=== PATIENT | male | born 1985 | race Caucasian/White ===

== ENCOUNTER 2021-03-07 16:46 | Emergency (ER) | payer MEDICAID, SELFPAY ==
[2020-05-26 08:22] VITALS: BMI 19.5
[2021-03-07 16:47] VITALS: BP 119/85; PULSE 103; RESP 14; TEMP 36.8; O2SAT 97; BMI 21.4
--- NOTE | 2021-03-07 18:33 | EDS_ITS ---
HPI History of Present Illness HPI Narrative: Patient presents with laceration to his right thumb that occurred today. Patient states he got hit by a fan blade on his right thumb. Patient states bleeding has been persistent. Patient states the bleeding is improved with applying pressure to the wound. The patient describes the pain as burning and throbbing. Patient states his last tetanus was between 5 and 10 years ago. Patient denies any paresthesias or weakness. Patient denies any other injuries. Chief Complaint: Laceration Informant: patient Occured/Mechanism Mechanism/Context: Yes direct blow Onset/Context/Timing Onset: Today Context: Sudden Onset Timing: Continuous Quality of Pain: Burning and Throbbing Worsened by: Movement Relieved by: Pressure Associated Symptoms Associated Symptoms: Negative for Parasthesia and Weakness Narrative Tetanus Immunization: 5-10 years [facility] Medical History Abnormal bruising ADHD Chondromalacia of patella Difficulty balancing when standing GERD (gastroesophageal reflux disease) History of non-neoplastic nevus Irritable bowel syndrome (IBS) Knee pain Migraine headache with aura Migraines Occipital neuralgia of right side Seasonal allergies Home Medications [id number]-sbuvtjpmfiuko-szrknudl 250 mg-250 mg-65 mg tablet 1 tab PO ONCE PRN 02/26/18 [History Last Taken Unknown] dextroamphetamine-amphetamine ER 20 mg 24hr capsule,extend release 20 mg PO cap 05/26/20 [History Last Taken Unknown] gabapentin 300 mg capsule cap PO 05/26/20 [History Last Taken Unknown] methylprednisolone 4 mg tablets in a dose pack See Rx Instructions PO PER PKG DIR #21 tab 05/26/20 [Rx Last Taken Unknown] Allergy/AdvReac Type Severity Reaction Status Date / Time No Known Allergies Allergy Verified 03/07/21 16:47 Family History Father Bleeding disorder Colitis Hypertension Surgical History Hx of nevus excision Hx of right inguinal hernia repair Social History Smoking Status: Current every day smoker tobacco type: cigarettes second hand exposure: Yes alcohol intake: never substance use type: does not use caffeine: Yes what type of physical activity do you participate in: none frequency: does not exercise seatbelt use: always ROS ROS ED Constitutional Constitutional ED: Denies chills or fever(s) Eyes Eyes: Denies blurry vision or change in vision ENT ENT ED: Denies rhinorrhea or sore throat Cardiovascular Cardiovascular: Denies chest pain or palpitations Respiratory/Chest Respiratory/Chest: Denies cough or dyspnea Gastrointestinal Gastrointestinal: Denies nausea or vomiting Genitourinary Genitourinary ED: Denies dysuria or hematuria Musculoskeletal Musculoskeletal: Denies back pain or neck pain Integumentary Denies abscess or rash Neurologic Neurologic: Denies headache(s) or weakness Allergic/Immunologic Allergic/Immunologic ED: Denies mouth swelling or urticaria EXAM Physical Exam Const Vital Signs: 03/07/21 16:47 Temperature 98.3 F Temperature Source Temporal Pulse Rate 103 H Respiratory Rate 14 Blood Pressure 119/85 H Blood Pressure Mean 96 Pulse Ox 97 Oxygen Delivery Method Room Air Positive well nourished and well developed General Appearance ED: well developed HEENT Reports moist mucous membranes normocephalic Neck full ROM and supple Extremity Extremity Narrative: There is tenderness of the distal phalanx of the right thumb. There is a 2 cm full-thickness linear laceration of the dorsal aspect of the right thumb. There is mild gapping of the wound margins. There is some mild bleeding noted. There is no bony crepitance or step-off. There is no obvious deformity. Strength is 5/5 in flexion extension of the IP and MP joints of the right thumb. Capillary refill was less than 2 seconds in all digits. Sensation was intact to light touch in all digits. Neuro oriented x3, CN's II-XII intact bilaterally, moves all extremities, no focal motor deficits and no sensory deficits noted Sensorium / Orientation: alert Psych mental status grossly normal MDM MDM MDM Narrative Medical decision making narrative: X-rays of the right thumb were obtained. There are 3 views. On my interpretation, there is no acute fracture. There is no dislocation. There is no soft tissue swelling. Radiologist also interpreted the x-rays and agrees. The wound was cleaned and irrigated with copious amounts of normal saline. The wound was anesthetized with 1% plain lidocaine via digital block. The wound was closed with 4 simple interrupted #4-0 nylon sutures under sterile technique. Patient tolerated the procedure well. Bacitracin dressing was applied. Patient was instructed to keep the wound clean and dry. Patient was instructed to follow-up with his primary care physician in 7 days for wound recheck and suture removal. Patient understood and was agreeable with the plan. All questions were answered. Procedures Lacerations Right thumb: Length: 2 cm Depth: Sub Q Shape: Linear Prep: Sterile Conditions and Chlorhexadine Laceration repair: Digital block and Lidocaine Irrigated (ml): 100 Number of Sutures/Ladysmith: 4 Suture Information: Ethilon, Simple and 4-0 Discharge Plan Triage Chief Complaint: Laceration ED Provider: Charles Davila Dx/Rx/DC Orders Clinical Impression: Laceration of right thumb Instructions: ED Laceration, Hand: All Closures Prescriptions: No Action [id number]-nwzkkuugzhcgf-bgkqeqim [Excedrin Extra Strength] 250-250-65 mg tablet 1 tab PO ONCE PRNRF: 0 gabapentin 300 mg capsule PO RF: 0 dextroamphetamine-amphetamine 20 mg capsule,extended release 24hr 20 mg PO RF: 0 methylprednisolone [Medrol (Gold)] 4 mg tablets,dose pack See Rx Instructions PO PER PKG DIR Qty: 21 RF: 0 Primary Care Provider: Care Physician,No Primary Referrals: Sukhi Obregon MD [NON-STAFF] - 7 Days for suture removal Care Physician,No Primary [Primary Care Provider] - 7 Days for suture removal Disposition Disposition: Home, Self Care
--- NOTE | 2021-03-07 18:45 | RAD_ITS ---
STUDY: X-RAY - RIGHT HAND, ATTENTION FIRST FINGER REASON FOR EXAM: Male, 35 years old. LACERATION TO POSTERIOR THUMB FROM FAN BLADE TECHNIQUE: 3 view(s) of the finger were obtained. COMPARISON: Right hand x-ray dated March 18, 2012 FINDINGS: Normal metacarpal head. Normal metacarpophalangeal joint. Normal proximal phalanx. Normal middle phalanx. Normal distal phalanx. Normal proximal interphalangeal joint. Normal distal interphalangeal joint. There is no demonstrated fracture. RAD/Finger(s) Min 2 Views IMPRESSION: Normal x-ray examination of the finger. Electronically Signed: Castillo Oneal MD at 19:20 EDT , Service support ,
[2021-03-07] MEDS: Lidocaine 1% (20 ml mdv) 20 ML Vial INFILT (18:50)
[2021-03-07] MEDS: Diphth,Pertuss(Acell),Tet Vac 0.5 ML Vial IM (18:50)
[2021-03-07 21:27] VITALS: BP 117/89; PULSE 82; RESP 15; O2SAT 99
== END 2021-03-07 21:28 | disposition home or self-care (01) ==
PROVIDERS: Emergency Provider Emergency Medicine
DX: S61.011A Laceration without foreign body of right thumb without damage to nail, initial encounter (principal); F17.210 Nicotine dependence, cigarettes, uncomplicated; W26.8XXA Contact with other sharp object(s), not elsewhere classified, initial encounter; Y93.89 Activity, other specified; Y92.89 Other specified places as the place of occurrence of the external cause; Y99.8 Other external cause status
CPT/HCPCS: 12001; 73140; 90471; 90715; 99283

== ENCOUNTER 2022-04-10 15:33 | Emergency (ER) | payer OTHER, MEDICAID, SELFPAY ==
[2022-04-10 15:33] VITALS: BP 130/90; PULSE 95; RESP 17; TEMP 36.2; O2SAT 98; BMI 20.7
[2022-04-10 16:10] LABS: Color, Urine Yellow (Yellow); Glucose, Dipstick Normal (Normal); Ketone-Dipstick Negative (Negative); Leukocyte Esterase-Dipstick 25 /ul (Negative); Nitrite-Dipstick Negative (Negative); Occult Blood-Urine 250 /ul (Negative); Protein-Dipstick 15 mg/dl (Negative); Specific Gravity, Urine 1.015 (1.002-1.030); Urine Bilirubin Dipstick Negative (Negative); Urine Clarity Clear (Clear); Urine Urobilinogen Normal (Normal)
[2022-04-10 16:24] LABS: Red Blood Cells-Urine 50-100 SEEN /hpf (0-5); Squamous Epithelial Cells - UA 0-5 SEEN /hpf (0-5); White Blood Cells 0-5 SEEN /hpf (0-5)
[2022-04-10 16:25] LABS: Bacteria 1+ /hpf (None Seen); Mucous, Urine 1+ /hpf (<or=2+)
[2022-04-10 16:26] LABS: Hyaline Cast 5-10 SEEN /lpf (0-5)
[2022-04-10 16:29] LABS: Absolute Lymphocyte Count 1.46 X10^3/uL (0.83-4.51); Absolute Neutrophil Count 7.9 X10^3/uL (2.0-7.7); Basophil# 0.03 X10^3/uL; Basophil% 0.3 % (0-1); Eosinophil# 0.02 X10^3/uL; Eosinophils% 0.2 % (0-5); Hematocrit 46.2 % (40-54); Hemoglobin 15.8 g/dL (13.0-16.5); Lymphocyte # 1.46 X10^3/ul (0.83-4.51); Lymphocyte % 14.2 % (19-41); Mean Corp Hgb Conc 34.2 g/dL (32-36); Mean Corpuscular Hgb 30.6 pg (27.0-32.0); Mean Corpuscular Volume 89.4 fL (80-94); Mean Platelet Vol. 10.1 fl (6.2-12.0); Monocyte# 0.81 X10^3/uL; Monocyte% 7.9 % (0-10); NRBC Flagged by Analyzer 0 % (0-5); Neutrophil # 7.93 X10^3/uL (2.7-7.7); Platelet Count 204 K/mm3 (150-450); RBC Distribution Width CV 11.9 % (11.6-14.6); Red Blood Count 5.17 M/mm3 (4.6-6.2); White Blood Count 10.3 K/mm3 (4.4-11.0)
--- NOTE | 2022-04-10 16:29 | EX.ED.DYSGE1 ---
HPI History of Present Illness Chief Complaint: Flank Pain Detail of Chief Complaint: Left flank pain radiating anteriorly. See HPI narrative Informant: patient and spouse/S.O. Onset/Context/Timing Onset: Yesterday Context: Sudden Onset Timing: Continuous and Waxes and wanes Quality: Pain Location: Presently left flank, last evening scrotum as well Current Severity: Mild Maximum Severity: Severe Worsened by: Nothing specific Relieved by: Nothing Associated Symptoms Associated Symptoms: Nausea last evening and pain midstream Narrative Narrative: Patient is a 36-year-old male who presents with left flank pain that radiated anteriorly yesterday evening. He also complained of nausea with pain in his scrotum. No swelling of the scrotum or testicular pain presently. He denies dysuria, frequency, urgency or hematuria. However, he made comment when he had to stop midstream he had discomfort. He has not noted change in the color of his urine. There is no history of renal ureterolithiasis. He does have a remote history of right inguinal hernia, open repair by Dr. Jasbir Asencio. There is no history of trauma. Movement does not exacerbate his pain. Nothing has alleviated his pain. He denies rash. Prior similar symptoms: No Recent Illness/[facility]: [facility] Medical History Abnormal bruising ADHD Chondromalacia of patella Difficulty balancing when standing GERD (gastroesophageal reflux disease) History of non-neoplastic nevus Irritable bowel syndrome (IBS) Knee pain Migraine headache with aura Migraines Occipital neuralgia of right side Seasonal allergies Home Medications fctwspz-jwvlpehvhrhsu-zfxtadgd 250 mg-250 mg-65 mg tablet (Excedrin Extra Strength) 1 tab PO ONCE PRN migraines 02/26/18 [History Last Taken Unknown] dextroamphetamine-amphetamine ER 20 mg 24hr capsule,extend release 20 mg PO DAILY 05/26/20 [History Last Taken Unknown] gabapentin 300 mg capsule 1 cap PO TID PRN PRN nerve 05/26/20 [History Last Taken Unknown] oxycodone-acetaminophen 5 mg-325 mg tablet 1 tab PO Q6H PRN PRN pain 5 days #20 TABLETS 04/10/22 [Rx Last Taken Unknown] sulfamethoxazole 800 mg-trimethoprim 160 mg tablet 1 tab PO BID #14 TABLETS 04/10/22 [Rx Last Taken Unknown] Allergy/AdvReac Type Severity Reaction Status Date / Time No Known Allergies Allergy Verified 04/10/22 15:35 Family History Father Bleeding disorder Colitis Hypertension Surgical History Hx of nevus excision Hx of right inguinal hernia repair Social History (Updated 04/10/22 @ 16:[address] David Bello MD) household members: significant other Smoking Status: Current every day smoker tobacco type: cigarettes second hand exposure: Yes alcohol intake: never substance use type: does not use caffeine: Yes what type of physical activity do you participate in: none frequency: does not exercise seatbelt use: always ROS ROS ED Constitutional Constitutional ED: Denies chills, fever(s), subjective, sweats or weight loss Eyes Eyes: Denies blurry vision, change in vision or diplopia ENT ENT ED: Denies ear pain, rhinorrhea or sore throat Cardiovascular Cardiovascular: Denies chest pain, palpitations or racing heartbeat Respiratory/Chest Respiratory/Chest: Denies cough, dyspnea or dyspnea on exertion Gastrointestinal Gastrointestinal: Reports abdominal pain and nausea; Denies constipation, diarrhea, melena or vomiting Genitourinary Genitourinary ED: Denies dysuria, hematuria or urinary frequency Musculoskeletal Musculoskeletal: Reports back pain; Denies arthralgias, myalgias or neck pain Integumentary Denies abscess, Abrasions or rash Neurologic Neurologic: Denies headache(s), paresthesias or weakness Hematologic/Lymphatic Hematologic/Lymphatic: Reports systems reviewed and no addt'l complaints, except as documented EXAM Physical Exam Const Vital Signs: 04/10/22 15:33 Temperature 97.1 F L Temperature Source Temporal Pulse Rate 95 Respiratory Rate 17 Blood Pressure 130/90 H Blood Pressure Mean 103 Pulse Ox 98 Oxygen Delivery Method Room Air Positive well nourished and well developed; Negative for unkempt General Appearance ED: well developed and NAD; Negative for unkempt, cyanotic, diaphoretic or pallor HEENT Reports moist mucous membranes HEENT Narrative: Head is atraumatic normocephalic. Ears normal. Nares patent. Teeth normal. Eyes PERRL and EOMs intact bilaterally General Eye ED: Negative for pale conjunctiva or scleral icterus Neck no lymphadenopathy, supple and no JVD Resp normal respiratory effort and clear to auscultation bilaterally Cardio regular rate, regular rhythm, S1 normal heart sound, S2 normal heart sound and no murmurs GI normal to inspection, nondistended, normoactive bowel sounds and no masses; Negative for non-tender, non-distended or hepatosplenomegaly GI Narrative: Abdomen is tympanitic. It is slightly distended. There is tenderness throughout. There is no guarding or rebound tenderness. There is no hepatosplenomegaly. There is no inguinal lymphadenopathy. There is no inguinal mass noted. Surgical scar noted on the right. Back/Spine General Back: CVA tenderness left Cervical Spine: Negative for cervical spine tenderness Thoracic Spine / Upper Back: Negative for thoracic spinal tenderness Lumbar Spine / Lower Back: Negative for lumbar spinal tenderness Extremity normal to inspection General Extremety ED: Negative for edema, tenderness or other findings General Extremity: Negative for edema or other findings Neuro oriented x3, CN's II-XII intact bilaterally and no sensory deficits noted Psych Appearance: Negative for unkempt Skin no rashes or lesions noted, no wounds and skin turgor normal General Skin Exam: elasticity normal; Negative for jaundice or pallor MDM MDM MDM Narrative Medical decision making narrative: With urinary symptoms, left flank pain need to rule out UTI versus obstructing stone. We will need to assess renal function, CBC and white count. CBC is unremarkable. Basic metabolic panel is remarkable for a creatinine of 1.31 with a GFR of 65. Urine is remarkable for 1+ bacteria with no pyuria. There is gross hematuria. CT of the abdomen pelvis with IV contrast reveals right renal calculi and an obstructing proximal left ureteral calculi that is 3.2 mm in size. Patient's pain has essentially improved. Since he has an elevated creatinine we will treat his pain with opiate analgesia and not NSAIDs. He also received dose of antibiotics and was referred to Dr. Bansal. Lab Data Attestation: I reviewed the patient's lab results. Lab results narrative: Macro urinalysis is remarkable for protein, blood and leukoesterase. Micro reveals 50-100 RBCs with 1+ bacteria. There are hilar casts noted. In light of the hematuria will obtain CT of the abdomen pelvis with IV contrast to evaluate for obstructing ureteral stone. Labs: Laboratory Results - last 24 hr 04/10/22 04/10/2204/10/22 15:47 15:55 15:55 WBC 10.3 RBC 5.17 Hgb 15.8 Hct 46.2 MCV 89.4 MCH 30.6 MCHC 34.2 RDW Std Deviation 39.0 RDW Coeff of [place] 11.9 Plt Count 204 MPV 10.1 Immature Gran % (Auto) 0.400 Neut % (Auto) 77.0 H Lymph % (Auto) 14.2 L [place] % (Auto) 7.9 Eos % (Auto) 0.2 Baso % (Auto) 0.3 Absolute Neuts (auto) 7.9 H Absolute Lymphs (auto) 1.46 Nucleated RBC % 0 Sodium 140 Potassium 4.0 Chloride 108 H Carbon Dioxide 29.0 Anion Gap 3 L BUN 14 Creatinine 1.31 H Estim Creat Clear Calc 68.67 Est GFR (MDRD) Af Amer 78 Est GFR (MDRD) Non-Af 65 BUN/Creatinine Ratio 10.7 Glucose 96 Calcium 10.2 H Urine Color Yellow Urine Clarity Clear Urine pH 6.0 Ur Specific [place] 1.015 Urine Protein 15 H Urine Glucose (UA) Normal Urine Ketones Negative Urine Occult Blood 250 H Urine Nitrite Negative Urine Bilirubin Negative Urine Urobilinogen Normal Ur Leukocyte Esterase 25 H Urine RBC 50-100 SEEN Urine WBC 0-5 SEEN Ur Squamous Epith Cells 0-5 SEEN Urine Bacteria 1+ Hyaline Casts 5-10 SEEN Urine Mucus 1+ Radiography Diagnostic Testing: Clinical Impression(s) from Imaging Studies Abdomen/Pelvis CT 04/10/22 16:33 IMPRESSION: (NOT LISTED IN ORDER OF SIGNIFICANCE) Mild hydronephrosis caused by proximal left 3.2 mm ureteral stone. Other findings as above. Electronically Signed: Fidel Akers MD at 17:02 EDT Reading Location ID and State: [facility] / [place] , Service support , Discharge Plan Triage Chief Complaint: Flank Pain ED Provider: David Bello Dx/Rx/DC Orders Clinical Impression: Hydronephrosis with urinary obstruction due to ureteral calculus, Kidney stone on right side, Bacteriuria, Elevated serum creatinine Instructions: ED Kidney Stone Undescended No ..., ED Kidney Stone w/ Colic Prescriptions: New oxycodone-acetaminophen [oxycodone-acetaminophen] 5-325 mg tablet 1 tab PO Q6H PRN PRN (Reason: pain) 5 Days Qty: 20 0RF sulfamethoxazole-trimethoprim [sulfamethoxazole-trimethoprim] 800-160 mg tablet 1 tab PO BID Qty: 14 0RF No Action [id number]-udtlrchbjrqrh-trhmykyw [Excedrin Extra Strength] 250-250-65 mg tablet 1 tab PO ONCE PRN (Reason: migraines) gabapentin 300 mg capsule 1 cap PO TID PRN PRN (Reason: nerve ) dextroamphetamine-amphetamine 20 mg capsule,extended release 24hr 20 mg PO DAILY Label Comments: take 1 capsule by mouth once daily Primary Care Provider: Care Physician,No Primary Referrals: Junito Bansal MD [Med Staff - Active Staff] - 3-5 Days Care Physician,No Primary [Primary Care Provider] - Activity Restrictions/Additional Instructions: Return if you have a temperature greater than 100, shaking chills, pain that is not relieved by the pain medicine you were prescribed. Take antibiotics until gone. Disposition Disposition: Home, Self Care
--- NOTE | 2022-04-10 16:33 | CT_ITS ---
STUDY: CT Abdomen And Pelvis W/O Contrast Injection 04/10/2022 5:00 PM REASON FOR EXAM: Male, 36 years old. LEFT FLANK PAIN AND PRESSURE WITH BLOATING THAT STARTED LAST NIGHT AT 11PM. WORSE TODAY. PAIN Kidney Stone TECHNIQUE: Transaxial images were obtained without oral contrast, and without intravenous contrast. Individualized dose optimization techniques were used for this CT. COMPARISON: None. FINDINGS: The visualized lung bases are unremarkable. The visualized portions of the heart are within normal limits. Unremarkable liver. The gallbladder is contracted. Unremarkable spleen. Unremarkable pancreas. Unremarkable bilateral adrenal glands. Non obstructive 2 mm right renal parenchymal stones. Non obstructive 2 mm left renal parenchymal stones. Mild hydronephrosis caused by proximal left 3.2 mm ureteral stone. Unremarkable visualized stomach. Unremarkable small intestine. Unremarkable colon. There is non-visualization of the appendix. There are no acute findings of the abdominal aorta. Unremarkable inferior vena cava. Subcentimeter mesenteric lymph nodes. Unremarkable urinary bladder. There is an umbilical hernia containing fat. Unremarkable osseous structures. CT/Abdomen/Pelvis without Cont IMPRESSION: (NOT LISTED IN ORDER OF SIGNIFICANCE) Mild hydronephrosis caused by proximal left 3.2 mm ureteral stone. Other findings as above. Electronically Signed: Fidel Akers MD at 17:02 EDT ,
[2022-04-10 16:40] LABS: Anion Gap 3 (5-15); BUN 14 mg/dL (7-18); BUN/Creat Ratio 10.7 RATIO (10-20); Calcium,Total 10.2 mg/dL (8.5-10.1); Chloride 108 mmol/L (98-107); Creatinine, Serum 1.31 mg/dL (0.70-1.30); EST Glomerular Filtration Rate 65 mL/min (>60); Est Glom Filt Rate - Afr Amer 78 mL/min (>60); Estimated Creatinine Clearance 68.67 ml/min; Glucose 96 mg/dL (74-106); Sodium Level 140 mmol/L (136-145)
[2022-04-10 17:15] VITALS: RESP 18
[2022-04-10] MEDS: Smz/Tmp Ds Tablet 1 TABLET PO (17:31)
[2022-04-10] MEDS: Ketorolac 15 MG/ML Vial IV (17:32)
[2022-04-10 17:33] VITALS: RESP 18
== END 2022-04-10 17:50 | disposition home or self-care (01) ==
PROVIDERS: Emergency Provider Emergency Medicine; Visit Provider Emergency Medicine
DX: N13.2 Hydronephrosis with renal and ureteral calculous obstruction (principal); R79.89 Other specified abnormal findings of blood chemistry; R31.0 Gross hematuria; R82.71 Bacteriuria; F17.210 Nicotine dependence, cigarettes, uncomplicated
CPT/HCPCS: 74176; 80048; 81001; 85025; 87086; 87088; 96374; 99284

== ENCOUNTER 2022-08-15 02:38 | Emergency (ER) | payer BC, MEDICAID, SELFPAY ==
[2022-08-15 02:39] VITALS: BP 122/79; PULSE 119; RESP 18; TEMP 37.9; O2SAT 96; BMI 19.2
--- NOTE | 2022-08-15 03:17 | EX.ED.DYSGE1 ---
HPI History of Present Illness Chief Complaint: Fever Informant: patient Narrative Narrative: Cough started 2 days. Today fevers and myalgias. No urinary symptoms. No vomiting or diarrhea. 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 Nonvaccinated for COVID or influenza. Tylenol taken 8 hours ago. History of migraine headaches and kidney stones. Prior similar symptoms: Yes PFSH PFSH Medical History Abnormal bruising ADHD Chondromalacia of patella Difficulty balancing when standing GERD (gastroesophageal reflux disease) History of non-neoplastic nevus Irritable bowel syndrome (IBS) Knee pain Migraine headache with aura Migraines Occipital neuralgia of right side Seasonal allergies Allergy/AdvReac Type Severity Reaction Status Date / Time No Known Allergies Allergy Verified 04/10/22 15:35 Family History Father Bleeding disorder Colitis Hypertension Surgical History Hx of nevus excision Hx of right inguinal hernia repair Social History household members: significant other Smoking Status: Current every day smoker tobacco type: cigarettes second hand exposure: Yes alcohol intake: never substance use type: does not use caffeine: Yes what type of physical activity do you participate in: none frequency: does not exercise seatbelt use: always ROS ROS ED Constitutional Constitutional ED: Reports fever(s); Denies chills or sweats Eyes Eyes: Denies change in vision ENT ENT ED: Denies dysphagia or sore throat Cardiovascular Cardiovascular: Denies chest pain, leg edema, palpitations or racing heartbeat Respiratory/Chest Respiratory/Chest: Reports cough; Denies dyspnea or dyspnea on exertion Gastrointestinal Gastrointestinal: Denies abdominal pain, diarrhea, nausea or vomiting Genitourinary Genitourinary ED: Denies dysuria, hematuria or urinary frequency Musculoskeletal Musculoskeletal: Reports myalgias; Denies back pain, extremity pain or neck pain Integumentary Denies rash or wounds Neurologic Neurologic: Denies headache(s), paresthesias or weakness EXAM Physical Exam Const Vital Signs: 08/15/22 02:39 08/15/22 02:43 Temperature 100.3 F H Temperature Source Oral Pulse Rate 119 H Respiratory Rate 18 Respiratory Effort Normal Non-Labored Respiratory Pattern Normal Blood Pressure 122/79 H Blood Pressure Mean 93 Pulse Ox 96 Oxygen Delivery Method Room Air Positive well nourished and well developed Constitutional Narrative: Fatigue, however nontoxic. General Appearance ED: well developed and NAD HEENT Reports moist mucous membranes normocephalic and atraumatic Eyes PERRL, EOMs intact bilaterally and conjunctivae normal General Eye ED: Yes normal appearance of both eyes Neck no lymphadenopathy and supple Neck Narrative: No meningismus General: Negative for tenderness Chest Wall Chest: Negative for tenderness Resp normal respiratory effort and normal air movement Effort and Inspection: symmetric chest movement; Negative for respiratory distress Cardio regular rate, regular rhythm and no murmurs Peripheral Pulses: pulses 2+ throughout GI normal to inspection, nondistended, normoactive bowel sounds and non-tender Palpation: Negative for guarding or rebound tenderness present Back/Spine no CVA tenderness and no thoracic nor lumbar tenderness Extremity normal to inspection General Extremety ED: Negative for edema or tenderness General Extremity: Negative for edema Neuro oriented x3, CN's II-XII intact bilaterally and no sensory deficits noted Sensorium / Orientation: awake and alert Skin no rashes or lesions noted and no wounds MDM MDM MDM Narrative Medical decision making narrative: Patient low-grade temp in the ED. Tachycardic. Nontoxic. Treated with ibuprofen. Rapid COVID-negative however positive for influenza A. States his symptoms. No symptom comorbidities. He is 72-hour window from fluid discussed antivirals with side effects, he declines treatment of this at this time. Continue symptomatic treatment with NSAIDs continue oral fluids at home. Return precautions discussed. All questions were answered. Discharge Plan Triage Chief Complaint: Fever ED Provider: Marcelo Hardy Dx/Rx/DC Orders Clinical Impression: Influenza A, Fever, Myalgia Instructions: ED Fever Control (Adult), ED Influenza (Adult) Primary Care Provider: Care Physician,No Primary Referrals: Renzo Navarro MD [Med Staff - Care Center Manager] - 1 Week if not improving Care Physician,No Primary [Primary Care Provider] - Activity Restrictions/Additional Instructions: COVID-negative. Influenza A positive. Continue oral fluids. Continue Tylenol or Motrin as needed. Disposition Disposition: Home, Self Care Discharge Date/Time: 08/15/22 04:41
[2022-08-15] MEDS: Ibuprofen 600 MG Tablet PO (03:22)
== END 2022-08-15 04:41 | disposition home or self-care (01) ==
PROVIDERS: Emergency Provider Emergency Medicine; Visit Provider Emergency Medicine
DX: J10.1 Influenza due to other identified influenza virus with other respiratory manifestations (principal); F17.210 Nicotine dependence, cigarettes, uncomplicated; Z20.822 Contact with and (suspected) exposure to COVID-19
CPT/HCPCS: 87428; 99283

== ENCOUNTER 2024-07-29 15:05 | Emergency (ER) | payer MEDICAID, SELFPAY ==
[2024-07-29 15:09] VITALS: BP 131/105; PULSE 90; RESP 18; TEMP 36.4; O2SAT 98; BMI 26.2
--- NOTE | 2024-07-29 15:20 | CT_ITS ---
STUDY: CT ABDOMEN AND PELVIS WITHOUT CONTRAST REASON FOR EXAM: Male, 39 years old. left flank pain, hx of stones RADIATION DOSAGE (If Supplied By Facility): CTDIvol = ( 8.53 ) mGy, DLP = ( 432.44 ) mGycm TECHNIQUE: Transaxial images were obtained from the dome of the diaphragm to the symphysis pubis without oral contrast, and without intravenous contrast. Sagittal and coronal images were reconstructed. Individualized dose optimization techniques were used for this CT. COMPARISON: April 10, 2022 FINDINGS: The visualized lung bases are unremarkable. The visualized portions of the heart are within normal limits. Normal liver. Normal gallbladder and extrahepatic biliary system. Postop change status post splenectomy. Normal pancreas. Normal bilateral adrenal glands. Bilateral nonobstructing renal calculi.. Small renal cyst in the right kidney which will not require additional imaging. Normal visualized stomach. Normal small intestine. Mild diverticular changes of the colon without evidence for acute diverticulitis. Normal appendix is not visualized. There were no secondary signs of acute appendicitis Normal abdominal aorta. Normal inferior vena cava. Normal retroperitoneum. Normal urinary bladder. Postsurgical fibrosis noted within the upper anterior abdominal cavity and subcutaneous fat of the anterior abdominal wall. Normal osseous structures. Previously noted left ureteral stone is not visualized and presumably been passed CT/Abdomen/Pelvis without Cont IMPRESSION: Bilateral nephrolithiasis without evidence for renal obstruction or ureteral calculus Minor diverticular changes of the colon without evidence for acute diverticulitis Electronically Signed: Jason Covarrubias MD at 16:15 EST ,
[2024-07-29] MEDS: Ketorolac 15 MG/ML Vial IV (15:29)
[2024-07-29 15:34] LABS: Red Blood Cells-Urine 0 SEEN /hpf (0-5)
[2024-07-29 15:36] LABS: Absolute Lymphocyte Count 2.89 X10^3/uL (0.83-4.51); Absolute Neutrophil Count 5.7 X10^3/uL (2.0-7.7); Basophil# 0.15 X10^3/uL; Basophil% 1.5 % (0-1); Eosinophil# 0.15 X10^3/uL; Eosinophils% 1.5 % (0-5); Hematocrit 47.6 % (40-54); Hemoglobin 15.9 g/dL (13.0-16.5); Lymphocyte # 2.89 X10^3/ul (0.83-4.51); Lymphocyte % 29.4 % (19-41); Mean Corp Hgb Conc 33.4 g/dL (32-36); Mean Corpuscular Volume 92.8 fL (80-94); Mean Platelet Vol. 9.8 fl (6.2-12.0); Monocyte# 0.89 X10^3/uL; NRBC Flagged by Analyzer 0 % (0-5); Neutrophil # 5.74 X10^3/uL (2.7-7.7); Neutrophil % 58.4 % (47-70); Platelet Count 590 K/mm3 (150-450); RBC Distribution Width CV 12.5 % (11.6-14.6); RBC Distribution Width SD 42.9 fl (35.1-43.9); Red Blood Count 5.13 M/mm3 (4.6-6.2); White Blood Count 9.8 K/mm3 (4.4-11.0)
[2024-07-29 15:40] LABS: Color, Urine Yellow (Yellow); Glucose, Dipstick Normal (Normal); Ketone-Dipstick Negative (Negative); Leukocyte Esterase-Dipstick Negative /ul (Negative); Nitrite-Dipstick Negative (Negative); Occult Blood-Urine Negative /ul (Negative); Protein-Dipstick 15 mg/dl (Negative); Specific Gravity, Urine 1.025 (1.002-1.030); Urine Bilirubin Dipstick Negative (Negative); Urine Clarity Clear (Clear); Urine Urobilinogen Normal (Normal)
[2024-07-29 15:54] LABS: AST(SGOT) 31 U/L (15-37); Alanine Aminotransfer ALT/SGPT 99 U/L (16-61); Alkaline Phosphatase 92 U/L (45-117); Anion Gap 6 (5-15); BUN 17 mg/dL (7-18); BUN/Creat Ratio 18.9 RATIO (10-20); Calcium,Total 9.6 mg/dL (8.5-10.1); Chloride 106 mmol/L (98-107); EST Glomerular Filtration Rate 99 mL/min (>60); Est Glom Filt Rate - Afr Amer 120 mL/min (>60); Estimated Creatinine Clearance 108.01 ml/min; Globulin 3.9 g/dL (2.2-4.2); Glucose 122 mg/dL (74-106); Lipase 36 U/L (13-75); Protein, Total 7.9 g/dL (6.4-8.2); Sodium Level 139 mmol/L (136-145)
--- NOTE | 2024-07-29 15:54 | EDS_ITS ---
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 He states that this started last night and wrapped around into his left lower portion of his abdomen. He states that he does have a history of kidney stones and this feels like kidney stones. He states that he was told that he had kidney stones on that side time of surgery. Patient states that he had been taking Tylenol and gabapentin that he normally takes for his headache/migraines which is not helping which prompted him to come here for further evaluation management. PFSH [facility] Medical History Seasonal allergies Difficulty balancing when standing Abnormal bruising Knee pain Migraines Occipital neuralgia of right side History of non-neoplastic nevus Migraine headache with aura Irritable bowel syndrome (IBS) GERD (gastroesophageal reflux disease) Chondromalacia of patella ADHD Allergy/AdvReac Type Severity Reaction Status Date / Time No Known Allergies Allergy Verified 04/10/22 15:35 Family History Father Bleeding disorder Colitis Hypertension Surgical History H/O splenectomy Hx of right inguinal hernia repair Hx of nevus excision Social History household members: significant other Smoking Status: Current every day smoker tobacco type: cigarettes second hand exposure: Yes alcohol intake: never substance use type: does not use caffeine: Yes what type of physical activity do you participate in: none frequency: does not exercise seatbelt use: always ROS ROS ED ROS Narrative Constitutional: Denies fevers, chills, headache, lightness, dizziness Eyes: Denies change vision double vision blurry vision Cardiovascular: Denies chest pain Respiratory: Denies shortness of breath Abdomen: Denies abdominal pain nausea vomit diarrhea : Denies painful urination, hematuria, polyuria Neurological: Denies numbness, weakness, tingling Musculoskeletal: Complains of left flank pain as noted above Skin: States that his surgical scars are healing well EXAM Physical Exam Narrative Exam Narrative: General: Patient lying in bed rest comfortably did not appear to be in acute distress Head: Atraumatic, normocephalic Eyes: PERRL bilateral, EOMI bladder, no conjunctival injection noted Neck: Soft, supple, trachea midline Cardiovascular: Regular rate and rhythm no murmurs gallops rubs noted Respiratory: Clear to auscultation bilaterally Abdomen: Soft, nondistended, no tenderness palpation, bowel sounds present x 4, surgical scars are well-healing no concern for infection at this point in time Musculoskeletal: No CVA tenderness noted bilaterally, no tenderness palpation in the midline of the thoracolumbar spine Extremities: +5/5 strength noted in the bilateral upper and lower extremities, no pedal edema exam Neurological: Patient following commands knew that he was at [facility] years 2023 Skin: Warm, dry, intact Const Vital Signs: 07/29/24 15:09 Temperature 97.5 F L Temperature Source Oral Pulse Rate 90 Respiratory Rate 18 Blood Pressure 131/105 H Blood Pressure Mean 113 Pulse Ox 98 Oxygen Delivery Method Room Air MDM MDM MDM Narrative Medical decision making narrative: Patient is a 39-year-old male who presents to the emerged part with a chief complaint of left-sided flank pain and concern for a kidney stone. Patient will have a workup performed here on the differential diagnose includes but limited to urolithiasis, pyelonephritis, UTI, musculoskeletal strain. Once workup is obtained reviewed he will be reevaluated. Patient's CBC was reviewed and showed no evidence leukocytosis white blood count normal at 9.8, hemoglobin stable 15.9, platelet count normal at 590. Patient sodium normal 139, potassium normal at 4, creatinine normal at 0.90. Patient's AST and ALT are 31 and 99 respectively lipase normal at 36. Patient's urinalysis reviewed and showed no evidence of blood negative nitrates, negative leukocyte esterase 0-5 white blood cells and 2+ bacteria he does not have any urinary symptoms we will send this for culture. Patient's CT abdomen pelvis without IV contrast was reviewed and showed bilateral nephrolithiasis without evidence for renal obstruction or ureteral calculus. Minor diverticular changes of the colon without evidence for acute Noreen diverticulitis. I did discuss results with the patient he would like to go home at this point time. I did advise him that there is a chance that he did pass the kidney stone prior to his arrival here. Without any blood in his urine there is a small chance of this but it is still possible. Patient was advised to follow-up on urine culture with his primary care physician. He is advised to return with worsening symptoms or any concerns. He is agreeable this plan all question concerns answered he is discharged home in stable condition. Lab Data Labs: Laboratory Results - last 24 hr 07/29/24 15:26 WBC 9.8 RBC 5.13 Hgb 15.9 Hct 47.6 MCV 92.8 MCH 31.0 MCHC 33.4 RDW Std Deviation 42.9 RDW Coeff of [place]iston 12.5 Plt Count 590 H MPV 9.8 Immature Gran % (Auto) 0.200 Neut % (Auto) 58.4 Lymph % (Auto) 29.4 [place] % (Auto) 9.0 Eos % (Auto) 1.5 Baso % (Auto) 1.5 H Absolute Neuts (auto) 5.7 Absolute Lymphs (auto) 2.89 Nucleated RBC % 0 Sodium 139 Potassium 4.0 Chloride 106 Carbon Dioxide 27.0 Anion Gap 6 BUN 17 Creatinine 0.90 Estim Creat Clear Calc 108.01 Est GFR (MDRD) Af Amer 120 Est GFR (MDRD) Non-Af 99 BUN/Creatinine Ratio 18.9 Glucose 122 H Calcium 9.6 Total Bilirubin 0.80 AST 31 ALT 99 H Alkaline Phosphatase 92 Total Protein 7.9 Albumin 4.0 Globulin 3.9 Albumin/Globulin Ratio 1.0 Lipase 36 Urine Color Yellow Urine Clarity Clear Urine pH 5.0 Ur Specific [place] 1.025 Urine Protein 15 H Urine Glucose (UA) Normal Urine Ketones Negative Urine Occult Blood Negative Urine Nitrite Negative Urine Bilirubin Negative Urine Urobilinogen Normal Ur Leukocyte Esterase Negative Urine RBC 0 SEEN Urine WBC 0-5 SEEN Ur Squamous Epith Cells 0-5 SEEN Urine Bacteria 2+ Urine Mucus 3+ Radiography Diagnostic Testing: Clinical Impression(s) from Imaging Studies Abdomen/Pelvis CT 07/29/24 15:20 IMPRESSION: Bilateral nephrolithiasis without evidence for renal obstruction or ureteral calculus Minor diverticular changes of the colon without evidence for acute diverticulitis Electronically Signed: Jason Covarrubias MD at 16:15 EST , Discharge Plan Triage Chief Complaint: Flank Pain ED Provider: Freddie Back Dx/Rx/DC Orders Clinical Impression: Acute left flank pain Primary Care Provider: Claudia Noriega Referrals: Claudia Noriega MD [Primary Care Provider] - Activity Restrictions/Additional Instructions: Follow-up with your primary care physician in the outpatient setting. Follow-up on the urine culture results with them. Return with worsening symptoms or any other concerns. Print Language: Irish Disposition Disposition: Home, Self Care
[2024-07-29 16:54] LABS: Bacteria 2+ /hpf (None Seen); Mucous, Urine 3+ /hpf (<or=2+); Squamous Epithelial Cells - UA 0-5 SEEN /hpf (0-5); White Blood Cells 0-5 SEEN /hpf (0-5)
[2024-07-29 17:05] VITALS: BP 121/70; PULSE 65; RESP 18; O2SAT 98
[2024-07-29 17:36] VITALS: BP 118/64; PULSE 66; RESP 16; TEMP 36.4; O2SAT 100
== END 2024-07-29 17:40 | disposition home or self-care (01) ==
PROVIDERS: Emergency Provider Emergency Medicine; PCP Internal Medicine; Visit Provider Emergency Medicine
DX: R10.9 Unspecified abdominal pain (principal); F17.210 Nicotine dependence, cigarettes, uncomplicated; G43.909 Migraine, unspecified, not intractable, without status migrainosus; K57.30 Diverticulosis of large intestine without perforation or abscess without bleeding; N20.0 Calculus of kidney; Z87.442 Personal history of urinary calculi
CPT/HCPCS: 74176; 80053; 81001; 83690; 85025; 87086; 96374; 99284; J7030; A4216

== ENCOUNTER 2024-08-21 12:02 | Emergency (ER) | payer MEDICAID, SELFPAY ==
[2024-08-21 12:02] VITALS: BP 162/106; PULSE 81; RESP 16; TEMP 36.4; O2SAT 100; BMI 26.4
--- NOTE | 2024-08-21 12:39 | EX.ED.GENINJ ---
HPI <EDUIN Warner - Last Filed: 08/21/24 13:02> History of Present Illness Chief Complaint: Laceration Narrative Narrative: Patient presenting today with a laceration on the right side of his face that he got today at work. He slipped on aluminum and hit his face against a metal. He denies any LOC, nausea, vomiting or use of blood thinners. He has a history of a splenectomy. His tetanus is up-to-date. PFSH <EDUIN Warner - Last Filed: 08/21/24 13:02> PFSH Medical History Seasonal allergies Difficulty balancing when standing Abnormal bruising Knee pain Migraines Occipital neuralgia of right side History of non-neoplastic nevus Migraine headache with aura Irritable bowel syndrome (IBS) GERD (gastroesophageal reflux disease) Chondromalacia of patella ADHD Home Medications ?Medication ?Instructions ?Recorded ?Last Taken ?Type cephalexin 500 mg capsule 500 mg PO TID 5 days #15 caps 08/21/24 Unknown Rx Allergy/AdvReac Type Severity Reaction Status Date / Time No Known Allergies Allergy Verified 04/10/22 15:35 Family History Father Bleeding disorder Colitis Hypertension Surgical History H/O splenectomy Hx of right inguinal hernia repair Hx of nevus excision Social History household members: significant other Smoking Status: Current every day smoker tobacco type: cigarettes second hand exposure: Yes alcohol intake: never substance use type: does not use caffeine: Yes what type of physical activity do you participate in: none frequency: does not exercise seatbelt use: always ROS <EDUIN Warner - Last Filed: 08/21/24 13:02> ROS ED Constitutional Constitutional ED: Denies chills or fever(s) Cardiovascular Cardiovascular: Denies chest pain Respiratory/Chest Respiratory/Chest: Denies dyspnea Gastrointestinal Gastrointestinal: Denies abdominal pain, nausea or vomiting Musculoskeletal Musculoskeletal: Denies arthralgias or myalgias Integumentary Reports laceration EXAM <EDUIN Warner - Last Filed: 08/21/24 13:02> Physical Exam Const Vital Signs: 08/21/24 12:02 08/21/24 12:42 Temperature 97.5 F L 97.9 F Temperature Source Temporal Pulse Rate 81 86 Respiratory Rate 16 16 Blood Pressure 162/106 H 146/84 H Blood Pressure Mean 124 104 Pulse Ox 100 99 Oxygen Delivery Method Room Air Positive well nourished, well developed and no apparent distress General Appearance ED: well developed HEENT Reports normocephalic and head/scalp atraumatic Mouth ED: Yes moist mucous membranes normal Eyes PERRL and EOMs intact bilaterally Neck full ROM and supple Chest Wall inspection of chest normal Resp normal respiratory effort and clear to auscultation bilaterally Cardio regular rate and regular rhythm Back/Spine normal ROM and normal to inspection Extremity normal to inspection and full ROM Neuro oriented x3, CN's II-XII intact bilaterally, moves all extremities, no focal motor deficits and no sensory deficits noted Sensorium / Orientation: awake and alert Psych mental status grossly normal and thought process normal Skin Skin Narrative: 1 cm partial-thickness linear laceration to the right cheek without active bleeding. <Dr. Itz Saleh, DO - Last Filed: 08/21/24 16:34> Physical Exam Const Vital Signs: 08/21/24 12:02 08/21/24 12:42 Temperature 97.5 F L 97.9 F Temperature Source Temporal Pulse Rate 81 86 Respiratory Rate 16 16 Blood Pressure 162/106 H 146/84 H Blood Pressure Mean 124 104 Pulse Ox 100 99 Oxygen Delivery Method Room Air PROC <EDUIN Warner - Last Filed: 08/21/24 13:02> Procedures Lacerations Laceration: Length: 0.39 in Depth: Sub Q Shape: Linear Prep: Chlorhexadine Laceration repair: Dermabond and Irrigated MDM <EDUIN Warner - Last Filed: 08/21/24 13:02> [facility] Narrative Medical decision making narrative: Patient presenting today with a 1 cm partial-thickness facial laceration that he got today at work. He is otherwise well-appearing and in no acute distress. I do not think that this require suture repair, it was cleansed with chlorhexidine. A small amount of Dermabond was applied to the wound with good wound edge approximation. Given his history of splenectomy, we will cover him with a few days of Keflex for prophylaxis. Wound care instructions discussed, return instructions discussed. Patient discharged home in stable condition. <Dr. Itz Saleh, DO - Last Filed: 08/21/24 16:34> [facility] Treatment and Re-Evaluation Narrative: ED attending note: I evaluated the patient in conjunction with the PIERRE. I agree with his/her statements and above findings. I have personally performed a face to face assessment of the patient and have reviewed the PIERRE Note. I performed a substantive portion of the visit including all aspects of the following. I personally saw the patient performed chart review, physical exam, reviewed labs, imaging (if obtained), and formulated a treatment and management plan. This note was generated with en-Gauge dictation software. It may contain incorrect words, spelling, and punctuation that were not noted in review of the chart prior to signing. Discharge Plan Triage Chief Complaint: Laceration ED Midlevel Provider: Areli Perez ED Provider: Itz Saleh Dx/Rx/DC Orders Clinical Impression: Laceration of face Instructions: ED Laceration, Face: Skin Glue Prescriptions: New cephalexin 500 mg capsule 500 mg PO TID 5 Days Qty: 15 0RF Stand Alone Forms: ED Work / School Excuse Primary Care Provider: Claudia Noriega Referrals: Claudia Noriega MD [Primary Care Provider] - 5-7 Days Activity Restrictions/Additional Instructions: Return for any signs of infection. Print Language: Icelandic Disposition Disposition: Home, Self Care Discharge Date/Time: 08/21/24 12:45
[2024-08-21 12:42] VITALS: BP 146/84; PULSE 86; RESP 16; TEMP 36.6; O2SAT 99
== END 2024-08-21 12:45 | disposition home or self-care (01) ==
PROVIDERS: Emergency Provider Emergency Medicine; PCP Internal Medicine; Visit Provider Emergency Medicine
DX: S01.81XA Laceration without foreign body of other part of head, initial encounter (principal); K21.9 Gastro-esophageal reflux disease without esophagitis; F17.210 Nicotine dependence, cigarettes, uncomplicated; W18.49XA Other slipping, tripping and stumbling without falling, initial encounter; Y99.0 Civilian activity done for income or pay
CPT/HCPCS: 12011; 99282

== ENCOUNTER 2024-10-10 13:09 | Emergency (ER) | payer MEDICAID, SELFPAY ==
[2024-10-10 13:10] VITALS: BP 123/94; PULSE 91; RESP 18; TEMP 36.1; O2SAT 98; BMI 26.7
== END 2024-10-10 13:30 | disposition left against medical advice (07) ==
LOC: ED 13:35
PROVIDERS: PCP Internal Medicine
DX: Z53.21 Procedure and treatment not carried out due to patient leaving prior to being seen by health care provider (principal)